=== PATIENT | female | born 1940 | race Two or more races ===

== ENCOUNTER 2017-11-08 09:10 | Outpatient (CLI) | payer OTHER | END 2017-11-08 09:14 | disposition home or self-care (01) | LOC: RAD 501 09:10 | DX: J45.31 Mild persistent asthma with (acute) exacerbation (principal) ==

== ENCOUNTER → 2019-07-23 | Outpatient (CLI) | payer OTHER | END | disposition home or self-care (01) | LOC: RAD 09:01 | DX: J30.1 Allergic rhinitis due to pollen (principal); J45.998 Other asthma; R06.02 Shortness of breath ==

== ENCOUNTER 2022-03-09 09:00 | Outpatient (CLI) | payer OTHER | END 2022-03-09 09:02 | disposition home or self-care (01) | LOC: RAD 09:00 | PROVIDERS: ATTEND Internal Medicine Pulmonary Disease | DX: R05.9 Cough, unspecified (principal); J45.20 Mild intermittent asthma, uncomplicated; Z86.16 Personal history of COVID-19 ==

== ENCOUNTER 2024-12-16 09:12 | Outpatient (CLI) | payer OTHER | END 2024-12-16 09:13 | disposition home or self-care (01) | LOC: NUCLEAR 09:12 | PROVIDERS: ATTEND Internal Medicine Rheumatology | DX: M85.80 Other specified disorders of bone density and structure, unspecified site (principal); M81.0 Age-related osteoporosis without current pathological fracture ==